=== PATIENT | female | born 1970 | race Caucasian/White ===

== ENCOUNTER 2023-03-23 11:09 | Emergency (ER) | payer OTHER ==
[2023-03-23] MEDS ORDERED: amLODIPine 5 MG Tab PO ONE (14:14)
[2023-03-23 14:33] LABS: BASOPHILS ABSOLUTE AUTO 0.03 K/uL (0.00-0.10); BASOPHILS PERCENT AUTO 0.4 % (0.1-1.3); EOSINOPHILS ABSOLUTE AUTO 0.25 K/uL (0.00-0.40); EOSINOPHILS PERCENT AUTO 3.2 % (0.0-5.4); HEMATOCRIT 42.5 % (34.3-46.0); HEMOGLOBIN 14.1 g/dL (11.2-15.5); IMMATURE GRAN PERCENT AUTO 0.3 % (0.0-0.7); LYMPHOCYTES ABSOLUTE AUTO 0.99 K/uL (0.8-3.3); LYMPHOCYTES PERCENT AUTO 12.6 % (11.4-47.7); MEAN CORPUSCULAR HEMOGLOBIN 27.4 pg (31.6-35.5); MEAN CORPUSCULAR HGB CONC 33.2 g/dL (31.6-35.5); MEAN CORPUSCULAR VOLUME 82.7 fL (81.4-99.0); MONOCYTES ABSOLUTE AUTO 0.68 K/uL (0.20-0.90); MONOCYTES PERCENT AUTO 8.6 % (3.3-12.6); NEUTROPHILS ABSOLUTE AUTO 5.91 K/uL (1.0-7.6); NEUTROPHILS PERCENT AUTO 74.9 % (40.0-78.1); PLATELET COUNT,PLT 251 K/uL (130-375); RED BLOOD CELL COUNT 5.14 M/uL (3.77-5.24); WHITE BLOOD CELL COUNT,WBC 7.9 K/uL (3.2-11.0)
[2023-03-23 15:04] LABS: IMMATURE GRAN ABSOLUTE AUTO 0.02 K/uL (0.00-0.23)
[2023-03-23 15:05] LABS: ANION GAP 10.1 mmol/L (5.0-14.0); CALCIUM 9.1 mg/dL (8.5-10.1); CREATININE 0.7 mg/dL (0.6-1.0); EST CRCL DRUG DOSING (CG) 83.63 mL/min; POTASSIUM,K 4.1 mmol/L (3.6-5.2); TSH ULTRASENSITIVE 1.43 uIU/mL (0.358-3.740)
[2023-03-23] MEDS ORDERED: Nitroglycerin 0.4 MG Tab.SL SL ONE (15:10)
[2023-03-23] MEDS ORDERED: Aspirin 81 MG Tab.Chew PO ONE (15:11)
[2023-03-23] MEDS ORDERED: Metoprolol Tartrate 25 MG Tab PO ONE (15:11)
[2023-03-23] MEDS ORDERED: Sodium Chloride 0.9% 10 ML Syringe FLUSH PRN (15:13)
[2023-03-23] MEDS ORDERED: Nitroglycerin/D5W 25 MG/250 ML BOTTLE IV SCH (15:15)
[2023-03-23 16:02] LABS: APPEARANCE,URINE SLIGHTLY CLOUDY (CLEAR); BILIRUBIN,URINE NEGATIVE (NEGATIVE); COLOR,URINE YELLOW (YELLOW); GLUCOSE,URINE NEGATIVE (NEGATIVE); KETONES,URINE NEGATIVE (NEGATIVE); LEUKOCYTE ESTERASE,URINE NEGATIVE (NEGATIVE); NITRITE,URINE NEGATIVE (NEGATIVE); OCCULT BLOOD,URINE NEGATIVE (NEGATIVE); PROTEIN,URINE NEGATIVE (NEGATIVE); UROBILINOGEN,URINE 0.2 EU/dL (0.2-1.0)
[2023-03-23 16:13] LABS: AMORPHOUS SEDIMENT,URINE NOT SEEN; BACTERIA,URINE FEW; EPITHELIAL CELLS,URINE MANY; MUCUS,URINE NOT SEEN; RBC,URINE 0-5 (0-5)
[2023-03-23] MEDS ORDERED: Lisinopril 5 MG Tab PO ONE (18:16)
== END 2023-03-23 19:04 | disposition home or self-care (01) ==
LOC: JP.ED 11:09
DX: I16.1 Hypertensive emergency (principal); I10 Essential (primary) hypertension; E78.5 Hyperlipidemia, unspecified; R79.89 Other specified abnormal findings of blood chemistry; Z86.16 Personal history of COVID-19; Z20.822 Contact with and (suspected) exposure to COVID-19; Z88.2 Allergy status to sulfonamides; Z88.8 Allergy status to other drugs, medicaments and biological substances; Z79.82 Long term (current) use of aspirin; Z79.899 Other long term (current) drug therapy
CPT/HCPCS: 36415; 71045; 80048; 81001; 84443; 84484; 85025; 85379; 87635; 93005; 96365; 96366; 99285; A9270; J3490; U0002